=== PATIENT | male | born 1940 | race Caucasian/White ===

== ENCOUNTER → 2022-03-02 | Outpatient (ROUT) | payer OTHER, SELFPAY ==
[2022-03-02 16:16] LABS: Add Manual Diff / Slide Review NO; Basophils Absolute Auto 100 /uL (0-100); Basophils Percent Auto 1.1 % (0-2); Eosinophils Absolute Auto 200 /uL (0-450); Eosinophils Percent Auto 1.7 % (2-4); Hematocrit 44.3 % (41-53); Hemoglobin 14.5 g/dL (13.5-17.5); Lymphocytes Absolute Auto 800 /uL (1100-4500); Mean Corpuscular HGB Conc 32.7 % (30-36); Mean Corpuscular Hemoglobin 29.8 PG (26-34); Monocytes Absolute Auto 1400 /uL (0-900); Monocytes Percent Auto 12.8 % (3-14); Neutrophils Absolute Auto 8100 /uL (1500-7000); Neutrophils Percent Auto 76.4 % (50-75); Platelet Count 283 X10^3/uL (150-400); Red Blood Cell Count 4.87 X10^6/uL (4.5-5.9); Red Cell Distribution Width 13.7 % (11.6-14.8); White Blood Cell Count 10.6 X10^3/uL (4.5-11.0)
[2022-03-02 16:51] LABS: Blood Urea Nitrogen 17 mg/dL (9-20); Calcium 8.4 mg/dL (8.4-10.2); Carbon Dioxide 30 mmol/L (22-32); Chloride 97 mmol/L (98-107); Estimated Glomerular Filt Rate > 60 mL/min (>60); Glucose 105 mg/dL (80-110); HEMOLYSIS < 15 (0-50); Potassium 4.5 mmol/L (3.4-5.1); Sodium 133 mmol/L (137-145)
== END ==
PROVIDERS: Visit Provider Physician Assistant Medical
DX: I10 Essential (primary) hypertension (principal); I87.2 Venous insufficiency (chronic) (peripheral)
CPT/HCPCS: 80048; 85025

== ENCOUNTER → 2024-01-25 15:24 | Outpatient (CLI) | payer MEDICARE, SELFPAY ==
--- NOTE | 2024-01-25 15:31 | DI.RAD.S_ITS ---
PROCEDURE: XR CHEST 2V INDICATIONS: Cough, unspecified TECHNIQUE: 2 views of the chest were acquired. COMPARISON: None. FINDINGS: Surgical changes and devices: None. Lungs and pleura: Low lung volumes. Lungs are clear. No pleural effusions or pneumothorax. Mediastinum: Aortic arch calcifications. Mediastinal contours are normal. Heart size is normal. Bones and chest wall: No suspicious bony abnormalities. Soft tissues appear unremarkable. IMPRESSION: No acute cardiothoracic process. Dictated by: Toño Patel M.D. on 01/25/2024 at 17:16 Approved by: Toño Patel M.D. on 01/25/2024 at 17:16
== END ==
DX: R05.9 Cough, unspecified (principal)
CPT/HCPCS: 71046

== ENCOUNTER → 2024-02-27 11:42 | Outpatient (CLI) | payer MEDICARE, SELFPAY ==
--- NOTE | 2024-02-27 | DI.RAD.S_ITS ---
PROCEDURE: XR CHEST 2V INDICATIONS: acute cough TECHNIQUE: 2 views of the chest were acquired. COMPARISON: [facility], CR, XR CHEST 2V, 01/25/2024, 15:42. FINDINGS: Surgical changes and devices: None. Lungs and pleura: Lungs are clear. No pleural effusions or pneumothorax. Mediastinum: Mediastinal contours are normal. Heart size is normal. Bones and chest wall: No suspicious bony abnormalities. Soft tissues appear unremarkable. IMPRESSION: No acute cardiopulmonary abnormality is seen. Dictated by: Carl De La Cruz M.D. on 02/27/2024 at 15:18 Approved by: Carl De La Cruz M.D. on 02/27/2024 at 15:19
== END ==
PROVIDERS: Referring Provider Registered Nurse Critical Care Medicine; Visit Provider Registered Nurse Critical Care Medicine
DX: R05.1 Acute cough (principal)
CPT/HCPCS: 71046

== ENCOUNTER → 2024-05-03 10:39 | Outpatient (CLI) | payer MEDICARE, MEDICAID, SELFPAY ==
--- NOTE | 2024-05-03 11:03 | EKG_ITS ---
[facility] [address], [place] [address] Test Date: 2024-05-03 Pat Name: Brady Sood Department: [facility] Room: Gender: Male Manager Budget: [employer]AP[employer] : 1940 Requested By: Order Number: [id number] Reading MD: Roberto Lisa MD Measurements Intervals [place] Rate: 68 P: [place]: QRS: -34 QRSD: 86 T: 39 QT: 390 QTc: 414 Interpretive Statements Undetermined rhythm Left axis deviation Nonspecific ST abnormality Electronically Signed On 05-03-2024 12:04:39 PST by Roberto Lisa MD
== END ==
DX: R00.1 Bradycardia, unspecified (principal)
CPT/HCPCS: 93005; 93010

== ENCOUNTER 2024-09-02 10:48 | Emergency (ER) | payer MEDICARE, SELFPAY ==
[2024-09-02] VITALS (15 sets, daily range): BP systolic 119–130; BP diastolic 57–66; PULSE 71–81; RESP 14–16; TEMP 37.1; O2SAT 91–96; BMI 34.9
[2024-09-02] MEDS: AMOXICILLIN/CLAV 875/125 MG 1 TAB PO (14:03)
--- NOTE | 2024-09-02 19:07 | ED.DENTAL ---
HPI - Dental/Oral General Chief complaint: Dental/Oral Stated complaint: Abscess L jaw/ear pain Time Seen by Provider: 09/02/24 12:43 Source: patient Mode of arrival: EMS History of Present Illness HPI Narrative: this is an 84-year-old male sent to us from rehab facility for jaw pain. Patient is a poor historian. Limited other information was available, he did not endorse fevers shortness of breath or shaking chills. Related Data Previous Rx's Medication Instructions Recorded amoxicillin 875 mg-potassium 1 tab PO BID #20 tabs 09/02/24 clavulanate 125 mg tablet Allergies Allergy/AdvReac Type Severity Reaction Status Date / Time No Known Drug Allergies Allergy Verified 09/02/24 10:53 Patient History Social History Smoking Status: Unknown if ever smoked Smoking Status: Unknown if ever smoked Exam Initial Vital Signs Initial Vital Signs: Vital Signs Temperature 98.8 F 09/02/24 10:50 Pulse Rate 81 09/02/24 10:50 Respiratory Rate 14 09/02/24 10:50 Blood Pressure 126/66 09/02/24 10:50 Pulse Oximetry 93 09/02/24 10:50 Oxygen Delivery Method Room Air 09/02/24 10:50 Vital signs are reassuring Const Other: he appears to be in no distress HENMT Head: normocephalic and atraumatic Mouth: other ( diffusely poor dentition. Left mandibular molar cavity. No sublingual ) HENMT Other: No sublingual swelling. Left parotid gland is warm swollen and tender. No clear fluctuance. Neck Other: Supple without adenopathy Resp Other: normal respiratory effort, lungs are clear Cardio Other: regular rhythm and rate no murmur Course Orders Ordered: Discontinued Medications Amoxicillin/Clavulanate Potassium (Amoxicillin/Clav 875/125 Mg) 1 tab PO NOW ONE Stop: 09/02/24 13:38 Last Admin: 09/02/24 14:03 Dose: 1 tab Documented By: LAURENT Vital Signs Vital signs: Vital Signs - 8 hr 09/02/24 11:30 09/02/24 12:00 09/02/24 12:30 Pulse Rate 73 72 71 Respiratory Rate Blood Pressure Pulse Oximetry 95 95 94 Oxygen Delivery Method 09/02/24 13:00 09/02/24 13:52 09/02/24 13:53 Pulse Rate 72 76 Respiratory Rate Blood Pressure 119/60 Pulse Oximetry 95 Oxygen Delivery Method 09/02/24 13:53 09/02/24 14:00 09/02/24 14:00 Pulse Rate 76 80 Respiratory Rate Blood Pressure 119/64 Pulse Oximetry 94 95 Oxygen Delivery Method 09/02/24 14:30 09/02/24 14:30 09/02/24 15:00 Pulse Rate 75 73 Respiratory Rate Blood Pressure 121/63 Pulse Oximetry 96 96 Oxygen Delivery Method 09/02/24 15:00 09/02/24 15:30 09/02/24 15:30 Pulse Rate 71 Respiratory Rate Blood Pressure 130/59 L 122/59 L Pulse Oximetry 95 Oxygen Delivery Method 09/02/24 16:00 09/02/24 16:00 09/02/24 16:16 Pulse Rate 73 74 Respiratory Rate 16 Blood Pressure 121/57 L 121/57 L Pulse Oximetry 95 95 Oxygen Delivery Method Room Air MDM - Dental/Oral MDM Narrative Medical decision making narrative: 84-year-old male who appears well with poor dentition dental caries and parotiditis. Patient was started on Augmentin and I recommended dental follow up. Discharge Plan Departure Patient Disposition: Home Clinical Impression: Acute suppurative parotitis, Dental caries Activity Restrictions/Additional Instructions: left parotid gland appears to be infected. Also has poor dentition with cavities present. Give Augmentin as prescribed for 10 days. First dose was given in the emergency department. May use acetaminophen and/or ibuprofen as needed for pain. Patient should be seen by a DENTIST as soon as possible. Return to the emergency department for increasing facial swelling fevers or other acute Prescriptions: New amoxicillin-pot clavulanate 875-125 mg tablet 1 tab PO BID Qty: 20 0RF Stand Alone Forms: Patient Portal/API/Survey
== END 2024-09-02 16:30 | disposition home or self-care (01) ==
PROVIDERS: Emergency Provider Emergency Medicine
DX: K11.21 Acute sialoadenitis (principal); K02.9 Dental caries, unspecified
CPT/HCPCS: 99283